=== PATIENT | female | born 1990 | race Caucasian/White ===

== ENCOUNTER 2023-05-09 10:32 | Emergency (ER) | payer OTHER, SELFPAY ==
[2023-05-09 10:34] VITALS: BP 123/78; PULSE 58; RESP 18; TEMP 36.6; O2SAT 100; BMI 23.8
--- NOTE | 2023-05-09 10:50 | ED.GENADUL1 ---
HPI - General Adult General Chief complaint: Nausea/Vomiting/Diarrhea Stated complaint: DEHYDRATION Time Seen by Provider: 05/09/23 10:44 Source: patient Mode of arrival: walk-in Limitations: no limitations History of Present Illness HPI narrative: patient's here for evaluation of ongoing nausea. 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 It was 4/5 hour procedure. They did not encounter any complications that she is aware. She's not been noted either drink since time of her surgery. She's not had a fever above one hundred. She does not have any neurological symptoms such as double vision or loss of vision dysarthria or dysphasia. There is no confusion. She says her neck is a little sore with surgical incisions but she is not noticing drainage from the area. She does not have an earache or sore throat. She's been taking some antirheumatic but it wears off and then she starts vomiting again. She's not had any diarrhea. She does have irritable bowel but does not have a previous surgery on her abdomen.she has had colonoscopies in the past that were normal. After extensive discussion she also remembered that many years ago she was told that her gallbladder was not working properly but she never followed up for further diagnostic testing recently. He does not know if she's ever had a elevation of her liver function tests more recent history. Related Data Home Medications Medication Instructions Recorded Confirmed buspirone 5 mg tablet 5 mg PO BID PRN anxiety 05/09/23 05/09/23 escitalopram oxalate 10 mg tablet 10 mg PO DAILY 05/09/23 05/09/23 folic acid 1 mg tablet 1 mg PO BID 05/09/23 05/09/23 Allergies Allergy/AdvReac Type Severity Reaction Status Date / Time Penicillins Allergy Intermediate Verified 05/09/23 10:38 [facility] Medical History (Updated 05/09/23 @ 16:00 by Derrick Sandoval MD) Exam Narrative Exam Narrative: patient appears uncomfortable and does have some dry heaving. However cognition mental status and GCS are all normal with no evidence of confusion or altered mental status. Constitution vital signs are normal. I examination shows no pallor or scleral icterus. Neck shows a posterior midline cervical incision with no purulence drainage discharge or dehiscence. It appears to be healing normally. Respiratory shows no wheeze rales rhonchi. Pulse oximetry normal. Abdomen shows mild discomfort in the right upper quadrant. There is no tenderness in the lower abdomen. There is no abdominal distention. Constitutional Vital Signs, click to edit/add: Last Vital Signs Temp 98 F 05/09/23 10:34 Pulse 58 L 05/09/23 10:34 Resp 18 05/09/23 10:34 BP 123/78 H 05/09/23 10:34 Pulse Ox 100 05/09/23 10:34 O2 Del Method Room Air 05/09/23 10:34 Course Vital Signs Vital signs: Vital Signs Temperature 98 F 05/09/23 10:34 Pulse Rate 58 L 05/09/23 10:34 Respiratory Rate 18 05/09/23 10:34 Blood Pressure 123/78 H 05/09/23 10:34 Pulse Oximetry 100 05/09/23 10:34 Oxygen Delivery Method Room Air 05/09/23 10:34 Temperature 98 F 05/09/23 10:34 Pulse Rate 58 L 05/09/23 10:34 Respiratory Rate 18 05/09/23 10:34 Blood Pressure 123/78 H 05/09/23 10:34 Pulse Oximetry 100 05/09/23 10:34 Oxygen Delivery Method Room Air 05/09/23 10:34 Medical Decision Making MDM Narrative Medical decision making narrative: based on the patient's history I will initiate intravenous rehydration with D5 lactated Ringer's. Routine laboratory testing shows some elevation of total bilirubin which she said she had in the past as well but now her liver function tests are elevated somewhat. White blood cell count modestly elevated. Because of this we will go ahead and get a CT of her abdomen. Previously CT of her head did not show any acute findings. The CT of the abdomen did not show any intra-abdominal pathology but I still believe that she needs to have her liver function tests evaluated and consider HIDA scanning as an outpatient. She is confident that her primary care doctor will see her in a timely fashion. She will be given a copy of all her lab tests and CT scan. She is requesting Zofran ODT. Because the acid indigestion she's having when also going to start her on Pepcid. Lab Data Labs: Lab Results 05/09/23 Range/Units 10:45 WBC 13.8 H (4.0-11.0) 10^3/uL RBC 5.05 (4.20-5.40) 10^6/uL Hgb 15.4 (12.0-16.0) g/dL Hct 43.9 (36.0-48.0) % MCV 86.9 (81.0-99.0) fL MCH 30.5 (26.7-34.0) pg MCHC 35.1 (29.9-35.2) g/dL RDW 12.1 (11.0-15.0) % Plt Count 388 (150-450) 10^3/uL MPV 9.8 (9.5-13.5) fL Neut % (Auto) 73.2 (43.0-75.0) % Lymph % (Auto) 17.5 L (20.5-60.0) % [place] % (Auto) 8.2 (1.7-12.0) % Eos % (Auto) 0.3 L (0.9-7.0) % Baso % (Auto) 0.4 (0.2-2.0) % Neut # (Auto) 10.1 H (1.4-6.5) 10^3/uL Lymph # (Auto) 2.4 (1.2-3.8) 10^3/uL [place] # (Auto) 1.1 H (0.3-0.8) 10^3/uL Eos # (Auto) 0.0 (0.0-0.7) 10^3/uL Baso # (Auto) 0.1 (0.0-0.1) 10^3/uL Abs Immat Gran (auto) 0.06 H (0.00-0.03) 10^3/uL Imm/Tot Granulo (auto) 0.4 (0.0-0.5) % Sodium 139 (136-145) mmol/L Potassium 3.4 L (3.5-5.1) mmol/L Chloride 98 (98-107) mmol/L Carbon Dioxide 30.0 (21.0-32.0) mmol/L Anion Gap 14.4 BUN 19.0 H (7.0-18.0) mg/dL Creatinine 0.81 (0.55-1.02) mg/dL Est GFR ( Amer) >60 (>=60) Est GFR (Non-Af Amer) >60 (>=60) BUN/Creatinine Ratio 23.5 Glucose 108 H (74-106) mg/dL Calcium 9.9 (8.5-10.1) mg/dL Total Bilirubin 2.4 H (0.2-1.0) mg/dL AST 126 H (15-37) U/L ALT 160 H (14-59) U/L Alkaline Phosphatase 71 (46-116) U/L Total Protein 8.3 H (6.4-8.2) g/dL Albumin 4.1 (3.4-5.0) g/dL Globulin 4.2 g/dL Albumin/Globulin Ratio 1.0 Lipase 127.0 (73.0-393.0) U/L Discharge Plan Discharge Chief Complaint: Nausea/Vomiting/Diarrhea Clinical Impression: Elevated liver function tests Time of Disposition Decision: 15:59 Prescriptions / Home Meds: No Action escitalopram oxalate 10 mg tablet 10 mg PO DAILY folic acid 1 mg tablet 1 mg PO BID buspirone 5 mg tablet 5 mg PO BID PRN (Reason: anxiety) Instructions: Acute Nausea and Vomiting (DC) Stand Alone Forms: Portal Instructions Referrals: Physician,Non-Staff, MD [Primary Care Provider] - 1 week
--- NOTE | 2023-05-09 10:52 | CT_ITS ---
[address] [address] Patient Name: MICHELLE STREET MRN: [id number] date: 1990 Sex: F Assigned Patient Location: ER Current Patient Location: .[facility] Accession/Order Number: [id number] Exam Date: 05/09/2023 11:01 Report Date: 05/09/2023 11:34 At the request of: NITO FLEMING Procedure: CT head/brain wo con EXAM: CT head/brain wo con; [id number] REASON FOR EXAM: postop headache COMPARISON: None. TECHNIQUE: Axial CT images of the head obtained without contrast. Multiplanar reformats generated at the scanner. Dose reduction technique used: Automated exposure control and/or adjustment of the mA and/or kV according to patient size and/or use of iterative reconstruction technique. FINDINGS: Parenchyma: -Normal parenchymal pattern. -No midline shift or mass effect. Basilar cisterns are patent. -No acute intracranial hemorrhage. -No loss of cortical raman-white differentiation to indicate acute cortical infarct. Extra-axial spaces: -Small area of hyperattenuated thickening of the posterior falx cerebri (series 5 image 27 and series 6 image 53). -Bilateral symmetric streak artifact over the posterior skull Ventricles: Normal in size and symmetric. Paranasal sinuses: Visualized paranasal sinuses are clear. Mastoid air cells: Visualized mastoids are clear. Orbits: No acute abnormality. Osseous: Status post suboccipital craniotomy. Soft tissues: Status post suboccipital craniotomy. Small amount of postoperative fluid in the adjacent soft tissues without loculated collection. CT/CT head/brain wo con IMPRESSION: 1. Small area of hyperattenuated thickening of the posterior falx cerebri which could represent either trace subdural blood products versus mild focal dural thickening. 2. No other potentially acute intracranial abnormality demonstrated. Electronically authenticated by: SAUMYA MINOR Date: 05/09/2023 11:34
[2023-05-09] MEDS: ONDANSETRON PF 4 MG/2 ML VIAL IV (11:08)
[2023-05-09 11:20] LABS: Basophils Absolute Auto 0.1 10^3/uL (0.0-0.1); Basophils Percent Auto 0.4 % (0.2-2.0); Eosinophils Percent Auto 0.3 % (0.9-7.0); Hematocrit 43.9 % (36.0-48.0); Hemoglobin 15.4 g/dL (12.0-16.0); Immature Granulocytes Abs Auto 0.06 10^3/uL (0.00-0.03); Immature Granulocytes Pct Auto 0.4 % (0.0-0.5); Lymphocytes Absolute Auto 2.4 10^3/uL (1.2-3.8); Lymphocytes Percent Auto 17.5 % (20.5-60.0); Mean Corpuscular HGB Conc 35.1 g/dL (29.9-35.2); Mean Corpuscular Hemoglobin 30.5 pg (26.7-34.0); Mean Corpuscular Volume 86.9 fL (81.0-99.0); Mean Platelet Volume 9.8 fL (9.5-13.5); Monocytes Absolute Auto 1.1 10^3/uL (0.3-0.8); Monocytes Percent Auto 8.2 % (1.7-12.0); Neutrophils Absolute Auto 10.1 10^3/uL (1.4-6.5); Neutrophils Percent Auto 73.2 % (43.0-75.0); Platelet Count 388 10^3/uL (150-450); Red Blood Count 5.05 10^6/uL (4.20-5.40); Red Cell Distribution Width 12.1 % (11.0-15.0); White Blood Count 13.8 10^3/uL (4.0-11.0)
[2023-05-09 11:55] LABS: Alanine Aminotransferase 160 U/L (14-59); Albumin Level 4.1 g/dL (3.4-5.0); Alkaline Phosphatase 71 U/L (46-116); Anion Gap 14.4; Aspartate Amino Transferase 126 U/L (15-37); BUN Creatinine Ratio 23.5; Bilirubin Total 2.4 mg/dL (0.2-1.0); Calcium 9.9 mg/dL (8.5-10.1); Chloride 98 mmol/L (98-107); Estimated GFR (African America >60 (>=60); Estimated GFR (Non-African Ame >60 (>=60); Globulin 4.2 g/dL; Glucose 108 mg/dL (74-106); Potassium 3.4 mmol/L (3.5-5.1); Sodium 139 mmol/L (136-145); Total Protein 8.3 g/dL (6.4-8.2)
[2023-05-09] MEDS: PROMETHAZINE HCL 25 MG/ML VIAL 12.5 MG IV (12:07)
--- NOTE | 2023-05-09 13:51 | CT_ITS ---
The [address] [address] Patient Name: MICHELLE STREET MRN: [id number] date: 1990 Sex: F Assigned Patient Location: ER Current Patient Location: ER Accession/Order Number: [id number] Exam Date: 05/09/2023 14:06 Report Date: 05/09/2023 15:41 At the request of: NITO FLEMING Procedure: CT abdomen pelvis w con EXAMINATION: CT abdomen pelvis w con HISTORY: elevated LFTs and bilirubin and abdominal pain COMPARISON: No relevant comparison available. TECHNIQUE: Axial, Coronal, and Sagittal images were obtained without and/or with IV contrast as indicated by examination type. Dose reduction techniques were achieved by using automated exposure control and/or adjustment of mA and/or kV according to patient size and/or use of iterative reconstruction technique. FINDINGS: LUNG BASES: No visible pulmonary or pleural disease. LIVER: No enlargement, atrophy, suspicious density, or significant focal lesion. BILIARY: No dilatation or calcification. PANCREAS: No lesion, fluid collection, or abnormal duct dilatation. SPLEEN: No enlargement or focal lesion. ADRENALS: No mass or enlargement. KIDNEYS: No mass, obstruction, or calcification. BOWEL/MESENTERY: No visible mass, obstruction, or bowel wall thickening. AORTA/VASCULAR: No aneurysm or dissection. RETROPERITONEUM: No mass or adenopathy. LYMPH NODES: No adenopathy. URINARY BLADDER: No visible focal wall thickening, lesion, or calculus. PELVIC ORGANS: Thickened endometrial stripe, 19 mm. ABDOMINAL WALL: No mass or hernia. BONES: No bony lesion or fracture. OTHER: Negative. CT/CT abdomen pelvis w con IMPRESSION: 1.No acute or suspicious findings to account for patient's symptoms. 2. Slightly thickened endometrium; correlate with patient's stage in her menstrual cycle. Electronically authenticated by: JEANCARLOS CASTLE Date: 05/09/2023 15:41
[2023-05-09] MEDS: FAMOTIDINE/PF 20 MG/2 ML VIAL IV (16:00)
[2023-05-09 16:12] VITALS: BP 137/75; PULSE 64; RESP 16; O2SAT 98
== END 2023-05-09 16:18 | disposition home or self-care (01) ==
PROVIDERS: Emergency Provider Emergency Medicine Emergency Medical Services
DX: R79.89 Other specified abnormal findings of blood chemistry (principal); R11.2 Nausea with vomiting, unspecified; Z98.890 Other specified postprocedural states
CPT/HCPCS: 36415; 70450; 74177; 80053; 83690; 85025; 96374; 96375; 99285; Q9967

== ENCOUNTER 2023-12-20 14:45 | Emergency (ER) | payer OTHER, SELFPAY ==
[2023-12-20 14:54] VITALS: BP 110/93; PULSE 72; RESP 18; TEMP 36.9; O2SAT 100; BMI 24.9
--- NOTE | 2023-12-20 15:27 | ED.SKABFB1 ---
HPI - Skin/Abscess/Foreign Bdy General Chief complaint: Skin/Abscess/Foreign Body Stated complaint: NAPE OF HEAD PAIN Time Seen by Provider: 12/20/23 14:53 Source: patient Mode of arrival: walk-in Limitations: no limitations History of Present Illness HPI narrative: 33-year-old female presents for painful swollen area on the back of her neck. She has had this apparently for a few weeks. It has not gotten better. 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 She talked to her neurosurgeons office about this and they put her on Neosporin. It did not get better. There is been no drainage. No fever or vomiting. Related Data Home Medications Medication Instructions Recorded Confirmed buspirone 5 mg tablet 5 mg PO BID PRN anxiety 05/09/23 12/20/23 escitalopram oxalate 10 mg tablet 10 mg PO DAILY 05/09/23 12/20/23 folic acid 1 mg tablet 1 mg PO BID 05/09/23 12/20/23 cetirizine 10 mg tablet 10 mg PO DAILY 12/20/23 12/20/23 pantoprazole 40 mg tablet,delayed 40 mg PO DAILY 12/20/23 12/20/23 release Previous Rx's Medication Instructions Recorded cephalexin 500 mg capsule 500 mg PO QID 10 days #40 caps 12/20/23 sulfamethoxazole 800 1 tab PO BID 10 days #20 tabs 12/20/23 mg-trimethoprim 160 mg tablet (Bactrim DS) Allergies Allergy/AdvReac Type Severity Reaction Status Date / Time Penicillins Allergy Intermediate Verified 05/09/23 10:38 Review of Systems ROS Narrative A ten point review of systems is negative except as noted above. [facility] Medical History (Updated 12/20/23 @ 15:26 by Rowdy De La Cruz MD) Migraines ?G43.909 - Migraine, unspecified, not intractable, without status migrainosus (ICD-10) Chiari malformation IBS (irritable bowel syndrome) ?K58.9 - Irritable bowel syndrome without diarrhea (ICD-10) Social History Smoking status: Current every day smoker Exam Narrative Exam Narrative: Nurses note and vital signs reviewed and patient is not hypoxic. General: The patient appears well and in no apparent distress. Patient is resting comfortably on cart. Skin: Warm, dry, no pallor noted. There is no rash noted. Head: Normocephalic, atraumatic; posterior neck shows a healing surgical wound without dehiscence. There is some erythema towards the center is a round raised pustule approximately 4 mm in diameter. There is no open area or drainage. Eye: Normal conjunctiva, no drainage Ears, Nose, Mouth, and Throat: oral mucosa is moist. Nares patent. Cardiovascular: Regular Rate and Rhythm Respiratory: Patient is in no distress, no accessory muscle use, lungs are clear to auscultation, no wheezing, rales or rhonchi Back: non-tender GI: Soft and nontender Musculoskeletal: The patient has no evidence of calf tenderness, no pitting edema, symmetrical pulses noted bilaterally Neurological: A&O, normal speech Psychiatric: Cooperative Constitutional Vital Signs, click to edit/add: Last Vital Signs Temp 98.5 F 12/20/23 14:54 Pulse 72 12/20/23 14:54 Resp 18 12/20/23 14:54 BP 110/93 H 12/20/23 14:54 Pulse Ox 100 12/20/23 14:54 O2 Del Method Room Air 12/20/23 14:54 Course Vital Signs Vital signs: Vital Signs Temperature 98.5 F 12/20/23 14:54 Pulse Rate 72 12/20/23 14:54 Respiratory Rate 18 12/20/23 14:54 Blood Pressure 110/93 H 12/20/23 14:54 Pulse Oximetry 100 12/20/23 14:54 Oxygen Delivery Method Room Air 12/20/23 14:54 Temperature 98.5 F 12/20/23 14:54 Pulse Rate 72 12/20/23 14:54 Respiratory Rate 18 12/20/23 14:54 Blood Pressure 110/93 H 12/20/23 14:54 Pulse Oximetry 100 12/20/23 14:54 Oxygen Delivery Method Room Air 12/20/23 14:54 MDM - Skin/Abscess/Foreign Bdy MDM Narrative Medical decision making narrative: Spencer is prescribed Bactrim and Keflex and was recommended warm soaks. She is going to follow-up with her neurosurgeon. Have advised her that if this would need to be opened that it would be most appropriate if her neurosurgeon perform that procedure rather than the emergency department. Treatment diagnosis and follow-up were discussed with the patient. Differential Diagnosis Differential diagnosis: Likely abscess of skin or subcutaneous tissue and cellulitis Discharge Plan Discharge Chief Complaint: Skin/Abscess/Foreign Body Clinical Impression: Infected surgical wound Patient Disposition: Home, Self-Care Time of Disposition Decision: 15:26 Condition: Good Mode of Transportation: Private Vehicle Prescriptions / Home Meds: New sulfamethoxazole-trimethoprim [Bactrim DS] 800-160 mg tablet 1 tab PO BID 10 Days Qty: 20 0RF cephalexin 500 mg capsule 500 mg PO QID 10 Days Qty: 40 0RF No Action cetirizine 10 mg tablet 10 mg PO DAILY pantoprazole 40 mg tablet,delayed release (DR/EC) 40 mg PO DAILY escitalopram oxalate 10 mg tablet 10 mg PO DAILY folic acid 1 mg tablet 1 mg PO BID buspirone 5 mg tablet 5 mg PO BID PRN (Reason: anxiety) Instructions: Surgical Site Infections (ED) Stand Alone Forms: Portal Instructions Referrals: Physician,Non-Staff, MD [Primary Care Provider] - 1 week
[2023-12-20 15:34] VITALS: BP 125/75; PULSE 80; RESP 18; O2SAT 100
== END 2023-12-20 15:32 | disposition home or self-care (01) ==
PROVIDERS: Emergency Provider Emergency Medicine
DX: T81.49XA Infection following a procedure, other surgical site, initial encounter (principal); F17.200 Nicotine dependence, unspecified, uncomplicated; K58.9 Irritable bowel syndrome, unspecified
CPT/HCPCS: 99283